=== PATIENT | male | born 1950 | race Caucasian/White ===

== ENCOUNTER → 2017-12-02 | Outpatient (CLI) | payer MEDICARE, OTHER ==
[~2017-12-02] MED LIST: ALBUTEROL0.09 MG/Ac IH; ASPIRIN81 M1 PO; CALMOSEPTINE1 OIN TP; CARAFATE1 G1 PO; CARDIZEM LA300 MG PO; COLACE100 MG PO; COMBIVENT1 ARO IH; COUMADIN2 M1 PO; CYCLOBENZAPRINE10 MG PO; DAYPRO600 M1 PO; DICLOFENAC50 MG PO; DUONEB 3 MG/3 ML3 M1 INH; FE TINIC PO; FERRATE325 MG PO; FISH OIL 10001000 MG PO; FLOMAX0.4 MG PO; FLORASTOR250 MG PO; FOLIC ACID1 MG PO; HCTZ/LISINOPRIL1 TA2 PO; HYTRIN10 MG PO; IMDUR30 MG PO; KEFLEX500 MG PO; LASIX20 MG PO; LISINOPRIL/HCTZ1 TA5 PO; LYRICA50 MG PO; LYRICA75 MG PO; MAG-OX 400400 MG PO; MEGACE ES625 MG/5 M PO; METOPROLOL100 MG PO; MORPHINE SULFAT PO; MS CONTIN PO; MS CONTIN30 MG PO; MULTI VITAMINS1 TAB PO; MULTIPLE VITAMI1 CAP PO; NITROGLYCERIN0.4 MG SL; OXYBUTYNIN5 MG PO; PANTOPRAZOLE40 M1 PO; PLAVIX75 MG PO; POTASSIUM CHLO10 ME3 PO; POTASSIUM CHLO20 MEQ PO; POTASSIUM CHLORIDE; PRAVACHOL80 MG PO; PRAVASTATIN SOD40 MG PO; PREVACID; PRILOSEC20 MG PO; ROBAXIN750 MG PO; TERAZOSIN HCL10 M1 PO; TYLENOL 8 HOUR650 MG PO; TYLENOL650 MG PO; ULTRAM50 MG PO; VITAMIN B122000 MCG PO; VITAMIN D1000 IU PO; VOLTAREN50 M1 PO; ZANTAC PO; ZESTORETIC 25 M1 TA4 PO; ZOLOFT100 MG PO; ZYRTEC10 MG PO
[2017-12-02 17:28] LABS: BUN 13 mg/dl (7-24); CHLORIDE 101 mmol/L (98-107); POTASSIUM 3.3 mmol/L (3.5-5.1); SODIUM 139 mmol/L (136-145)
== END | disposition home or self-care (01) ==
LOC: LAB 16:37
PROVIDERS: Internal Medicine Cardiovascular Disease
DX: Z48.812 Encounter for surgical aftercare following surgery on the circulatory system (principal); Z95.5 Presence of coronary angioplasty implant and graft

== ENCOUNTER → 2018-01-06 | Outpatient (CLI) | payer MEDICARE, OTHER | END | disposition home or self-care (01) | LOC: LAB 14:45 | DX: I10 Essential (primary) hypertension (principal) ==

== ENCOUNTER → 2018-03-08 | Outpatient (CLI) | payer MEDICARE, OTHER ==
[~2018-03-08] MED LIST changes: -FERRATE325 MG PO; +IMDUR SA30 MG PO; +IRON325 M1 PO; +KLOR-CON SPRIN10 MEQ PO; +METOPROLOL SUC100 M1 PO; -MORPHINE SULFAT PO; +MS CONTIN15 MG PO; +Magnesium Oxid400 MG PO; -PANTOPRAZOLE40 M1 PO; +PAXIL10 MG PO; +PROCARDIA XL60 MG PO; +PROTONIX IV40 MG PO
--- NOTE | ~2018-03-08 | ST ---
[employer] [place], [place] EXERCISE STRESS TEST REPORT NAME: EMILY ROSA UNIT #: [id number] ROOM: DOCTOR: ROHAN LU [facility],[place] BIRTHDATE: [birth year] DOS: 03/08/2018 The patient received Lexiscan 0.4 mg over 10 seconds. Heart rate obtained was 68. Isotope was injected. No complication noted. No electrocardiographic changes for myocardial ischemia. Ventricular ectopy noted and myocardial perfusion scan to follow. ALICIA MADRIGAL MD CM:STRESS:EXERCISE STRESS TEST REPORT [id number] ALICIA MADRIGAL MD [facility]
== END | disposition home or self-care (01) ==
LOC: US 00:41 → CARD 11:00
DX: N28.1 Cyst of kidney, acquired (principal); K76.9 Liver disease, unspecified; K82.9 Disease of gallbladder, unspecified; I25.10 Atherosclerotic heart disease of native coronary artery without angina pectoris; R07.9 Chest pain, unspecified